=== PATIENT | male | born 2000 | race African-American/Black ===

== ENCOUNTER 2021-06-23 18:47 | Emergency (ER) | payer MEDICAID ==
[~2021-06-23] VITALS: Ht 162.6 cm; Wt 70.0 kg
[2021-06-23] MEDS ORDERED: ONDANSETRON HCL 4MG/2ML INJ IM STA (18:53)
[2021-06-23] MEDS ORDERED: MAGNESIUM/ALUMINUM HYDROXIDE/SIMETHICONE 30ML UDC PO STA (18:53)
[2021-06-23 21:54] LABS: BASOPHILS % 0.2 % (0.0-2.0); EOSINOPHILS % 0.3 % (0.0-5.0); HEMATOCRIT. 43.6 % (42.0-52.0); HEMOGLOBIN. 14.8 g/dL (14.0-18.0); LYMPHOCYTES % 10.1 % (20.0-50.0); MEAN CORPUSCULAR HEMOGLOBIN 30.5 pg (28.0-32.0); MEAN PLATELET VOLUME 8.9 fl (7.4-10.4); MONOCYTES % 4.8 % (2.0-8.0); NEUTROPHILS % 84.6 % (40.0-76.0); PLATELET 277 x1000/uL (130-400); RED BLOOD CELL COUNT 4.85 mill/uL (4.7-6.1)
[2021-06-23 22:02] LABS: CHLORIDE 106 mEq/L (98-107)
[2021-06-23] MEDS ORDERED: FAMO-135 MT (22:54)
[2021-06-24] VITALS: BP 126/79
== END 2021-06-24 00:30 | disposition home or self-care (01) ==
LOC: ER 18:47
DX: R10.13 Epigastric pain (principal); D72.829 Elevated white blood cell count, unspecified; G40.909 Epilepsy, unspecified, not intractable, without status epilepticus; H54.7 Unspecified visual loss; Z91.018 Allergy to other foods
CPT/HCPCS: 36415; 80053; 85025; 99283